=== PATIENT | female | born 1995 | race African-American/Black ===

== ENCOUNTER 2017-07-06 10:56 | Emergency (ER) | payer MEDICAID ==
[2015-10-11 08:49] VITALS: BMI 34.8
[~2017-07-06 10:56] MED LIST: ACETAMINOPHEN-C1 TAB; BREXPIPRAZOLE PO; HYDROCODONE-APA1 TAB PO; IBUPROFEN600 MG PO; LEXAPRO10 MG; PRENAVITE1 TAB PO; ROXICODONE5 MG PO; [UNRECOGNIZED DRUG - OTHER] PO
== END 2017-07-06 12:38 | disposition home or self-care (01) ==
LOC: D.ER 10:56
DX: S99.921A Unspecified injury of right foot, initial encounter (principal); X58.XXXA Exposure to other specified factors, initial encounter; Y93.02 Activity, running; Y92.89 Other specified places as the place of occurrence of the external cause